=== PATIENT | female | born 1960 | race Caucasian/White ===

== ENCOUNTER 2016-12-22 05:32 | Day surgery (SDC) | payer OTHER ==
[2016-12-17 14:03] LABS: HEMATOCRIT 37.9 % (36.0-48.0); HEMOGLOBIN 11.6 g/dL (12.0-16.0)
[2016-12-17 14:13] LABS: BUN (BLOOD UREA NITROGEN) 13 MG/DL (6-23); CALCIUM, SERUM 9.5 MG/DL (8.5-10.4); CHLORIDE, SERUM 99 MMOL/L (96-112); GFR AFRICAN AMERICAN 114 ML/MIN (>=60); GFR NON AFRICAN AMERICAN 98 ML/MIN (>=60); POTASSIUM, SERUM 4.3 MMOL/L (3.5-5.3); SODIUM, SERUM 138 MMOL/L (135-148)
[2016-12-17 14:16] LABS: CO2 (CARBON DIOXIDE) 28 MMOL/L (24-34); GLUCOSE, SERUM 113 MG/DL (60-99)
--- NOTE | ~2016-12-22 | OP ---
Record Of Operation [facility] [address] [place]. [address] NAME: DIANE WOOD : 64 STATUS : REG [facility] PAT#: [id number] AGE: 56 ADM/REG DATE : 12/22/16 MR#: [id number] REPORT SERV DATE: 12/22/16 DICTATED BY: CAITLYN BUCK DATE: 12/22/16 REPORT STATUS : Draft TRANSCRIBED BY: MODFelix DATE: 12/22/16 DATE OF PROCEDURE: 12/22/2016 PREOPERATIVE DIAGNOSES: 1. 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 2. Congestive heart failure. 3. Insulin-dependent diabetes mellitus. 4. Hypertension. PROCEDURE PERFORMED: Closure of sternal wound with bilateral pectoralis advancement flaps. SURGEON: Caitlyn Buck M.D. ASSISTANTS: Darrin Madrid and Yoel Maldonado. ANESTHESIA: General. INDICATIONS: This is a 56-year-old female with a history of congestive heart failure, diabetes, who underwent uncomplicated bypass surgery in October of this year. She subsequently developed right lower extremity EVH site cellulitis. She was initially treated with antibiotic therapy orally. She presented with sternal wound drainage and was hospitalized, underwent debridement and sternal wound closure at the beginning of November and then re-presented to our office with sternal wound breakdown. She then underwent placement of a Vac-Pac and has had this changed multiple times, both home health, nursing, and here in the hospital. Last time we saw her in the office, it was felt that she is ready for closure at this time. We discussed this operation with the patient and her . They wished to proceed. FINDINGS OF OPERATION: 1. The patient has poor tissue and not very good muscular tissue and the bilateral pectoralis advancement flaps were felt to be indicated. 2. Thom drains were placed under each advancement flap. DESCRIPTION OF PROCEDURE: The patient was brought to the operating suite where general anesthesia was induced, airway was secured with the LMA. Lines were secured by Anesthesia. The patient laid in a supine position and the Vac-Pac was removed. The patient's chest and abdomen were prepped with Hibiclens and ChloraPrep, and draped with Ioban and sterile sheets. The wound was explored. There was no evidence of purulence. The granulation tissue appeared on the edges of the wound and was bleeding nicely. We then performed bilateral pectoralis advancement flaps, elevated the pectoralis off the chest wall bilaterally to allow tensionless closure of the midline. Then, the hemostasis was obtained. The large ladder plate placed previously was removed along with one sternal wire today. Then 3 L of Ancef irrigation with pulse lavage was performed in the wound. Record Of Operation [facility] [address] [place]. [address] NAME: DIANE WOOD : 64 STATUS : REG [facility] PAT#: [id number] AGE: 56 ADM/REG DATE : 12/22/16 MR#: [id number] REPORT SERV DATE: 12/22/16 DICTATED BY: CAITLYN BUCK DATE: 12/22/16 REPORT STATUS : Draft TRANSCRIBED BY: CRISTINA DATE: 12/22/16 Once hemostasis was assured, the pectoralis advancement flaps were reapproximated at the midline using #1 STRATAFIX. The subcutaneous tissue was not brought together; however, the skin was closed with interrupted sutures. Deep nylon sutures were placed to reinforce the closure. Prevena dressing was applied. The patient tolerated the procedure well. There were no complications. Sponge needle counts were correct. DISPOSITION: She was extubated and taken to the recovery room in stable condition. EDWAR/CRISTINA Caitlyn Buck M.D. / [id number] CC: Kemi Quinn
[~2016-12-22 05:32] MED LIST: AMARYL4 PO; ATEN50 PO; BACDS PO; CENTRUM TAB1 TAB PO; CINNAMON PO; CINNAMONPO PO; COREG3 PO; FISH-EPA1000 MG PO; GLUCOPHAGE1000 MG PO; HALF81 PO; JARDI25B PO; L20 PO; LEVAQUIN750 MG PO; LEVEMIR SC; LIPITOR40 PO; MIRALAX POWDER1 PKT PO; NITROQUICK0.4 MG SL; NITROSTAT0.4 MG SL; NORCO1 TA1 PO; NORCO1 TA2 PO; NORCO1 TAB PO; NORV5 PO; NOVOLOG SC; NOVOPEN SC; OTC ACID REDUCER PO; PLAVIX PO; PRIN2.5 PO; PRIN20 PO; PRINZIDE1 TA1 PO; PROZAC PO; STOOL SOFTEN100 MG PO; STOOL SOFTEN240 MG PO; TOUJEO SC; ZOCOR40 PO
== END 2016-12-22 19:19 | disposition home or self-care (01) ==
LOC: SDC 05:32
PROVIDERS: Thoracic Surgery (Cardiothoracic Vascular Surgery)
PROC: 0HX5XZZ Transfer Chest Skin, External Approach (ICD-10-PCS; principal; 2016-12-22 09:15)
DX: T81.30XS Disruption of wound, unspecified, sequela (principal); T81.4XXD Infection following a procedure, subsequent encounter; I25.10 Atherosclerotic heart disease of native coronary artery without angina pectoris; I11.0 Hypertensive heart disease with heart failure; I50.9 Heart failure, unspecified; I73.9 Peripheral vascular disease, unspecified; E78.5 Hyperlipidemia, unspecified; E11.9 Type 2 diabetes mellitus without complications; F41.9 Anxiety disorder, unspecified; I25.2 Old myocardial infarction; E78.00 Pure hypercholesterolemia, unspecified; F32.9 Major depressive disorder, single episode, unspecified; Z87.891 Personal history of nicotine dependence; Z95.1 Presence of aortocoronary bypass graft; Z88.1 Allergy status to other antibiotic agents; Z79.82 Long term (current) use of aspirin; Z79.891 Long term (current) use of opiate analgesic; Z79.899 Other long term (current) drug therapy; Z90.49 Acquired absence of other specified parts of digestive tract; Z98.890 Other specified postprocedural states
CPT/HCPCS: 80048; 82962; 85014; 85018; 93005; A9270-GY; J0690; J2250; J2270; J2405; J2795; J3010

== ENCOUNTER 2017-01-07 05:58 | Inpatient (IN) | payer OTHER ==
[2017-01-06 13:55] LABS: WBC (NOT ORDERED) (RFLEX) 0 (0-5)
[2017-01-06 15:14] LABS: BASOPHILS 0.2 %; BASOPHILS ABSOLUTE 0.02 10/3/uL (0.0-0.16); EOSINOPHILS 5.2 %; HEMATOCRIT 35.9 % (36.0-48.0); HEMOGLOBIN 11.2 g/dL (12.0-16.0); IMMATURE GRANULOCYTES 0.3 %; IMMATURE GRANULOCYTES ABSOLUTE 0.03 10/3/uL (0.0-0.11); LYMPHOCYTES 29.6 %; LYMPHOCYTES ABSOLUTE 3.39 10/3/uL (0.67-4.30); MANUAL DIFF NO %; MEAN CORPUS HGB CONC 31.2 g/dL (32.0-36.0); MEAN CORPUSCULAR HEMOGLOB 26.4 pg (26.0-34.0); MEAN CORPUSCULAR VOLUME 84.7 fL (80-100); MEAN PLATELET VOLUME 8.8 fL (9.2-13.0); MONOCYTES 4.5 %; MONOCYTES ABSOLUTE 0.51 10/3/uL (0.21-1.20); NEUTROPHILS 60.2 %; PLATELET COUNT 275 10/3/uL (150-400); RBC DISTRIBUTION WIDTH 14.7 % (12.0-16.0); RED CELL COUNT 4.24 10/6/uL (4.0-5.6); WHITE BLOOD CELLS 11.5 10/3/uL (4.5-10.5)
[2017-01-06 15:20] LABS: PROTIME (NOT ORD) 13.5 SEC (12.0-14.5)
[2017-01-06 15:23] LABS: BUN (BLOOD UREA NITROGEN) 13 MG/DL (6-23); CALCIUM, SERUM 8.9 MG/DL (8.5-10.4); CHLORIDE, SERUM 99 MMOL/L (96-112); CO2 (CARBON DIOXIDE) 25 MMOL/L (24-34); CREATININE 0.64 MG/DL (0.55-1.02); GFR AFRICAN AMERICAN 117 ML/MIN (>=60); GFR NON AFRICAN AMERICAN 101 ML/MIN (>=60); POTASSIUM, SERUM 4.4 MMOL/L (3.5-5.3); SODIUM, SERUM 136 MMOL/L (135-148)
[2017-01-06 15:24] LABS: GLUCOSE, SERUM 182 MG/DL (60-99)
[2017-01-06 16:37] LABS: ASCORBIC ACID (UR NOT ORDER) NEG (NEG); BILIRUBIN, URINE NEGATIVE (NEG); KETONE, URINE NEGATIVE (NEG); LEUKOCYTE ESTERASE(NOT OR NEG (NEG)
--- NOTE | ~2017-01-07 | OP ---
Record Of [facility] [address] [place]. [address] NAME: DIANE WOOD : 64 STATUS : ADM IN PAT#: [id number] AGE: 56 ADM/REG DATE : 01/07/17 MR#: [id number] REPORT SERV DATE: 01/10/17 DICTATED BY: CAITLYN BUCK DATE: 01/10/17 REPORT STATUS : Draft TRANSCRIBED BY: MODL DATE: 01/10/17 DATE OF PROCEDURE: 01/07/2017 PREOPERATIVE DIAGNOSES: 1. Sternal wound separation, status post coronary artery bypass grafting and previous closure. 2. Diabetes mellitus. 3. Tobacco abuse. POSTOPERATIVE DIAGNOSES: 1. Sternal wound separation, status post coronary artery bypass grafting and previous closure. 2. Diabetes mellitus. 3. Tobacco abuse. PROCEDURE PERFORMED: 1. Sternal wound debridement, superficial. 2. Placement of VAC pack. SURGEON: Caitlyn Buck M.D. ASPHALT LAYER: Yoel Maldonado. ANESTHESIA: General. INDICATIONS: Ms. Wood is an unfortunate 56-year-old female, who had bypass surgery by me in October of this year. She developed an endoscopic vein harvest site infection and then was treated with Duricef for this. She subsequently developed drainage from her sternal wound and broke down her sternal wound. She was treated with debridement and VAC pack for several weeks and then this was attempted to be closed secondarily. Unfortunately, this failed and the patient re-presented with drainage from the lower portion of her sternal incision which has been difficult to get to heal. I felt that the patient should re-appear in the operating room for debridement and this was discussed with the patient and her and wished to proceed. FINDINGS AT OPERATION: There was no active purulence deep within the wound. There was some granulation tissue and necrotic fat tissue that was seen and this was necrotic tissue frankly. Necrotic tissue was debrided. Cultures of the wound were sent. Once this was completed, hemostasis was obtained and then the wound was irrigated copiously with pulse lavage saline. The patient tolerated the procedure well. VAC pack was then placed at the end of the procedure. There was a small opening at the superior aspect of the sternal incision. It did not heal. This was clean without evidence of purulence and this was likewise debrided, irrigated and then a small VAC dressing placed on this. Record Of [facility] [address] [place] [address] NAME: DIANE WOOD : 64 STATUS : ADM IN PAT#: [id number] AGE: 56 ADM/REG DATE : 01/07/17 MR#: [id number] REPORT SERV DATE: 01/10/17 DICTATED BY: CAITLYN BUCK DATE: 01/10/17 REPORT STATUS : Draft TRANSCRIBED BY: CRISTINA DATE: 01/10/17 The patient tolerated the procedure well. VAC pack was applied without difficulty. DISPOSITION: She awakened and taken to recovery room in stable condition. EDWAR/CRISTINA Caitlyn Buck M.D. / [id number] CC: Kemi Quinn Paul E
--- NOTE | ~2017-01-07 | DS ---
Discharge Summary [facility] [address] [place]. [address] NAME: DIANE WOOD : 64 STATUS : DIS IN PAT#: [id number] AGE: 56 ADM/REG DATE : 01/07/17 MR#: [id number] REPORT SERV DATE: 01/20/17 DICTATED BY: CAITLYN BUCK DATE: 01/19/17 REPORT STATUS : Draft TRANSCRIBED BY: CRISTINA DATE: 01/19/17 Data Collection from hospitalization DISCHARGE DIAGNOSES: 1. Sternal wound separation, status post coronary artery bypass grafting and previous closure. 2. Diabetes mellitus. 3. Tobacco abuse. 4. Hypertension. 5. Hyperlipidemia. 6. Ischemic cardiomyopathy. 7. Chronic systolic heart failure. 8. Peripheral vascular disease. CONSULTATIONS: None. PROCEDURES PERFORMED: 1. Sternal wound debridement, superficial, placement of Vac-Pac on 01/07/2017. 2. Superficial sternal wound debridement with replacement of Vac-Pac, secondary closure of sternal separation on 01/10/2017. MEDICATIONS: Aspirin 81 mg daily, Lipitor 40 mg at bedtime, Coreg 3.125 mg twice a day, Duricef 500 mg every 12 hours, cinnamon oral supplement 500 mg daily, Plavix 75 mg every evening, stool softener 240 mg daily, Jardiance 25 mg daily, Prozac 20 mg every morning, Lasix 20 mg daily, [place]view 10/325 half to one tablet every four hours as needed, Toujeo 66 units subcutaneously every morning, Prinivil 2.5 mg every morning, Glucophage 1000 mg twice a day, NitroQuick 0.4 mg sublingually as needed, fish oil 1000 mg daily, MiraLAX powder one packet daily as needed, and cunr-wsa-wjsoslg acid plodding operator one tablet daily as needed. CONDITION AT DISCHARGE: Stable. DISPOSITION: The patient was discharged home on a low-cholesterol, low-sodium, 1800-calorie diabetic diet with activities as instructed. She would follow up with John Verduzco on 01/13/2017. HOSPITAL COURSE: This is a 56-year-old female who had undergone bypass surgery in October of this year. She developed an endoscopic vein harvest site infection and was then treated with Duricef. She subsequently developed drainage from the sternal wound and broke down her sternal wound. She had been treated with debridement and Vac-Pac for several weeks and then this was attempted to be closed secondarily. Unfortunately, this failed and the patient re- presented with drainage from the lower portion of the sternal incision, which had been difficult to heal. It was felt that she would need to be taken back to the operating room for debridement. This was discussed with the patient and her , and they agreed to proceed. She was admitted to the hospital at this time for further evaluation and treatment. Upon admission, she was taken to the operating room where she underwent the above-mentioned procedure. She tolerated this well, and there were no complications. The following day, Discharge Summary [facility] [address] [place]. [address] NAME: DIANE WOOD : 64 STATUS : DIS IN PAT#: [id number] AGE: 56 ADM/REG DATE : 01/07/17 MR#: [id number] REPORT SERV DATE: 01/20/17 DICTATED BY: CAITLYN BUCK DATE: 01/19/17 REPORT STATUS : Draft TRANSCRIBED BY: CRISTINA DATE: 01/19/17 she was alert and cooperative. White count was 11.5. On postop day #2, she had no new complaints. Plans were being made to take the patient back to the operating room. On 01/10/2017, she was taken back to the operating room where she underwent the above-mentioned procedure. She tolerated this well, and there were no complications. Discharge instructions were given. Due to her improved and stable condition, she was discharged home to be followed by home health care with the above-stated instructions. Information collected by: Ana Maria Valdivia I submit the above information as my discharge summary. DOLORES/CRISTINA Caitlyn Buck M.D. / [id number] CC: Kemi Quinn PAUL E
--- NOTE | ~2017-01-07 | OP ---
Record Of Operation [facility] [address] [place]. [address] NAME: DIANE WOOD : 64 STATUS : ADM IN [facility]#: [id number] AGE: 56 ADM/REG DATE : 01/07/17 MR#: [id number] REPORT SERV DATE: 01/10/17 DICTATED BY: CAITLYN BUCK DATE: 01/10/17 REPORT STATUS : Draft TRANSCRIBED BY: MODL DATE: 01/10/17 DATE OF PROCEDURE: 01/07/2017 PROCEDURE: 1. Superficial sternal wound debridement with replacement of VAC pack. 2. Secondary closure of sternal separation. SURGEON: Caitlyn Buck M.D. PLATE DRILLER: Darrin Madrid. ANESTHESIA: General. INDICATIONS: Ms Wood is a 56-year-old female, who presented with sternal wound separation after secondary closure following her bypass surgery in October of this year. A VAC pack dressing was applied over the weekend and felt the patient should go back to the operating room for inspection and debridement. I discussed with the patient and her who wished to proceed. FINDINGS AT OPERATION: 1. The most superior aspect of the wound was very clean and this was debrided lightly and then irrigated and then closed with interrupted nylon sutures. 2. The lower portion of the incision, it , measured about 8 cm long and about 3 cm deep. It was down to the clavipectoral fascia, but not down to the sternal bone. Unfortunately, there was necrotic tissue more on the left than the right and this would be expected given the patient's history of mammary harvest. No purulence was seen. No cultures were sent today. DESCRIPTION OF PROCEDURE: The patient was brought to the operating suite. General anesthesia was induced. The airway was secured with an endotracheal tube. Lines were secured by Anesthesia. VAC pack dressing was removed. The patient's chest was prepped with Hibiclens and ChloraPrep and draped with Ioban sterile sheets. Ioban was removed over the lower portion of the station and opening at the apex of the incision. The lower portion of the incision measured approximately 8 cm x 3 cm deep and it is granulating very well. There was no evidence of purulence. There was some necrotic tissue that was debrided. The superior aspect of the sternal wound separation measured approximately 1-2 cm and was less than 1 cm deep and was granulating very well. We then lightly debrided both areas of the wound and then irrigated these areas copiously with 3 L of sterile saline and Ancef irrigation and a pulse lavage. Once this was completed, the superior aspect of the wound was brought together with interrupted sutures of nylon. The lower aspect of the wound was dressed. VAC dressing was fashioned and placed in the wound. The superior aspect and inferior margins of the sternal separation were reinforced Record Of Operation [address] [address] NAME: DIANE WOOD : 64 STATUS : ADM IN [facility]#: [id number] AGE: 56 ADM/REG DATE : 01/07/17 MR#: [id number] REPORT SERV DATE: 01/10/17 DICTATED BY: CAITLYN BUCK DATE: 01/10/17 REPORT STATUS : Draft TRANSCRIBED BY: CRISTINA DATE: 01/10/17 or supported with horizontal mattress sutures of nylon to keep the wound from further. There was no tunneling evident. The VAC was applied. The patient tolerated the procedure well. There were no complications. Sponge and needle counts were correct. DISPOSITION: She was extubated and taken to recovery room in stable condition. EDWAR/CRISTINA Caitlyn Buck M.D. / [id number] CC: Kemi Quinn PAUL E
[2017-01-08 05:46] LABS: BUN (BLOOD UREA NITROGEN) 16 MG/DL (6-23); CALCIUM, SERUM 9.3 MG/DL (8.5-10.4); CHLORIDE, SERUM 98 MMOL/L (96-112); CO2 (CARBON DIOXIDE) 27 MMOL/L (24-34); CREATININE 0.87 MG/DL (0.55-1.02); GFR AFRICAN AMERICAN 88 ML/MIN (>=60); GFR NON AFRICAN AMERICAN 76 ML/MIN (>=60); POTASSIUM, SERUM 4.8 MMOL/L (3.5-5.3); SODIUM, SERUM 138 MMOL/L (135-148)
[2017-01-08 06:03] LABS: GLUCOSE, SERUM 277 MG/DL (60-99)
[2017-01-10 06:29] LABS: BASOPHILS 0.3 %; BASOPHILS ABSOLUTE 0.03 10/3/uL (0.0-0.16); EOSINOPHILS 3.9 %; HEMATOCRIT 37.4 % (36.0-48.0); HEMOGLOBIN 11.9 g/dL (12.0-16.0); IMMATURE GRANULOCYTES 0.2 %; IMMATURE GRANULOCYTES ABSOLUTE 0.02 10/3/uL (0.0-0.11); LYMPHOCYTES 40.3 %; LYMPHOCYTES ABSOLUTE 4.13 10/3/uL (0.67-4.30); MEAN CORPUS HGB CONC 31.8 g/dL (32.0-36.0); MEAN CORPUSCULAR HEMOGLOB 26.2 pg (26.0-34.0); MEAN CORPUSCULAR VOLUME 82.2 fL (80-100); MEAN PLATELET VOLUME 8.5 fL (9.2-13.0); MONOCYTES 7.2 %; MONOCYTES ABSOLUTE 0.74 10/3/uL (0.21-1.20); NEUTROPHILS 48.1 %; NEUTROPHILS ABSOLUTE 4.92 10/3/uL (2.02-8.40); PLATELET COUNT 307 10/3/uL (150-400); RBC DISTRIBUTION WIDTH 15.2 % (12.0-16.0); RED CELL COUNT 4.55 10/6/uL (4.0-5.6); WHITE BLOOD CELLS 10.2 10/3/uL (4.5-10.5)
[2017-01-10 06:38] LABS: CALCIUM, SERUM 9.2 MG/DL (8.5-10.4); CHLORIDE, SERUM 101 MMOL/L (96-112); CO2 (CARBON DIOXIDE) 24 MMOL/L (24-34); CREATININE 0.68 MG/DL (0.55-1.02); GFR AFRICAN AMERICAN 115 ML/MIN (>=60); GFR NON AFRICAN AMERICAN 99 ML/MIN (>=60); MANUAL DIFF NO %; POTASSIUM, SERUM 4.3 MMOL/L (3.5-5.3); SODIUM, SERUM 136 MMOL/L (135-148)
[2017-01-10 06:41] LABS: BUN (BLOOD UREA NITROGEN) 20 MG/DL (6-23); GLUCOSE, SERUM 188 MG/DL (60-99)
[2017-01-10] MEDS ORDERED: DURICEF PO (16:53)
== END 2017-01-10 17:50 | disposition home health service (06) | DRG 902 ==
LOC: SDC/OF 05:58 → PACU 09:15 → 5NO 10:15
PROVIDERS: Thoracic Surgery (Cardiothoracic Vascular Surgery)
PROC: 2W04X6Z Change Pressure Dressing on Chest Wall (ICD-10-PCS; 2017-01-07)
PROC: 0JB60ZZ Excision of Chest Subcutaneous Tissue and Fascia, Open Approach (ICD-10-PCS; principal; 2017-01-07 07:45)
PROC: 0PQ00ZZ Repair Sternum, Open Approach (ICD-10-PCS; 2017-01-07 07:45)
DX: T81.31XS Disruption of external operation (surgical) wound, not elsewhere classified, sequela (principal); I50.22 Chronic systolic (congestive) heart failure; I11.0 Hypertensive heart disease with heart failure; E11.9 Type 2 diabetes mellitus without complications; F17.210 Nicotine dependence, cigarettes, uncomplicated; Z95.1 Presence of aortocoronary bypass graft; I25.10 Atherosclerotic heart disease of native coronary artery without angina pectoris; E78.5 Hyperlipidemia, unspecified
CPT/HCPCS: 36415; 71020; 80048; 81001; 82962; 85025; 85610; 86850; 86900; 86901; 86920; 87015; 87070; 87075; 87102; 87116; 87205; A9270-GY; J0690; J1170; J2250; J2270; J2405; J2795; J3010; J3370

== ENCOUNTER 2017-01-19 16:35 | Emergency (ER) | payer OTHER ==
[2017-01-19 12:26] LABS: BASOPHILS 0.1 %; BASOPHILS ABSOLUTE 0.01 10/3/uL (0.0-0.16); EOSINOPHILS 3.6 %; EOSINOPHILS ABSOLUTE 0.34 10/3/uL (0.0-0.53); ER CBC TAT 0 Hrs 05 Mins; HEMATOCRIT 32.4 % (36.0-48.0); HEMOGLOBIN 10.2 g/dL (12.0-16.0); IMMATURE GRANULOCYTES 0.2 %; IMMATURE GRANULOCYTES ABSOLUTE 0.02 10/3/uL (0.0-0.11); LYMPHOCYTES 31.5 %; LYMPHOCYTES ABSOLUTE 2.94 10/3/uL (0.67-4.30); MANUAL DIFF NO %; MEAN CORPUS HGB CONC 31.5 g/dL (32.0-36.0); MEAN CORPUSCULAR HEMOGLOB 26.1 pg (26.0-34.0); MEAN CORPUSCULAR VOLUME 82.9 fL (80-100); MEAN PLATELET VOLUME 8.5 fL (9.2-13.0); MONOCYTES 6.8 %; MONOCYTES ABSOLUTE 0.63 10/3/uL (0.21-1.20); NEUTROPHILS 57.8 %; NEUTROPHILS ABSOLUTE 5.39 10/3/uL (2.02-8.40); PLATELET COUNT 223 10/3/uL (150-400); RBC DISTRIBUTION WIDTH 15.6 % (12.0-16.0); RED CELL COUNT 3.91 10/6/uL (4.0-5.6); WHITE BLOOD CELLS 9.3 10/3/uL (4.5-10.5)
[2017-01-19 12:36] LABS: INTERNATIONAL NORMAL RATI 1.1 UNITS (-); PARTIAL THROMBO TIME 29.4 SEC (22.5-37.2); PROTIME (NOT ORD) 14.1 SEC (12.0-14.5)
[2017-01-19 12:42] LABS: CALCIUM, SERUM 8.9 MG/DL (8.5-10.4); CHEST PAIN PROFILE TAT 0 Hrs 21 Mins; CHLORIDE, SERUM 105 MMOL/L (96-112); CO2 (CARBON DIOXIDE) 21 MMOL/L (24-34); CREATININE 0.63 MG/DL (0.55-1.02); GFR AFRICAN AMERICAN 118 ML/MIN (>=60); GFR NON AFRICAN AMERICAN 102 ML/MIN (>=60); GLUCOSE, SERUM 153 MG/DL (60-99); POTASSIUM, SERUM 3.9 MMOL/L (3.5-5.3); SODIUM, SERUM 140 MMOL/L (135-148); TROPONIN I <0.02 NG/ML (<0.05)
[2017-01-19 12:43] LABS: BUN (BLOOD UREA NITROGEN) 6 MG/DL (6-23)
[~2017-01-19 16:35] MED LIST changes: +DURICEF PO
== END 2017-01-19 18:56 | disposition home or self-care (01) ==
LOC: ER 16:35
PROVIDERS: Emergency Medicine
DX: R07.9 Chest pain, unspecified (principal); Z95.1 Presence of aortocoronary bypass graft; E11.9 Type 2 diabetes mellitus without complications; Z79.82 Long term (current) use of aspirin; Z79.899 Other long term (current) drug therapy
CPT/HCPCS: 71020; 71275; 80048; 83735; 84484; 85025; 85610; 85730; 93005; 96374; 96375; 99285; A9270-GY; J1170; J2405; Q9967

== ENCOUNTER 2017-03-23 06:02 | Day surgery (SDC) | payer OTHER ==
[2017-03-18 14:39] LABS: BASOPHILS 0.2 %; BASOPHILS ABSOLUTE 0.02 10/3/uL (0.0-0.16); EOSINOPHILS 3.3 %; EOSINOPHILS ABSOLUTE 0.29 10/3/uL (0.0-0.53); IMMATURE GRANULOCYTES 0.2 %; IMMATURE GRANULOCYTES ABSOLUTE 0.02 10/3/uL (0.0-0.11); LYMPHOCYTES 40.1 %; LYMPHOCYTES ABSOLUTE 3.51 10/3/uL (0.67-4.30); MEAN CORPUS HGB CONC 30.7 g/dL (32.0-36.0); MEAN CORPUSCULAR VOLUME 81.5 fL (80-100); MEAN PLATELET VOLUME 8.8 fL (9.2-13.0); MONOCYTES 8.5 %; MONOCYTES ABSOLUTE 0.74 10/3/uL (0.21-1.20); NEUTROPHILS 47.7 %; NEUTROPHILS ABSOLUTE 4.17 10/3/uL (2.02-8.40); PLATELET COUNT 207 10/3/uL (150-400); RBC DISTRIBUTION WIDTH 17.2 % (12.0-16.0); WHITE BLOOD CELLS 8.8 10/3/uL (4.5-10.5)
[2017-03-18 14:40] LABS: HEMATOCRIT 40.1 % (36.0-48.0); HEMOGLOBIN 12.3 g/dL (12.0-16.0); MANUAL DIFF NO %; RED CELL COUNT 4.92 10/6/uL (4.0-5.6)
[2017-03-18 14:45] LABS: INTERNATIONAL NORMAL RATI 1.1 UNITS (-)
[2017-03-18 14:51] LABS: CALCIUM, SERUM 9.3 MG/DL (8.5-10.4); CHLORIDE, SERUM 105 MMOL/L (96-112); CO2 (CARBON DIOXIDE) 25 MMOL/L (24-34); CREATININE 0.61 MG/DL (0.55-1.02); GFR AFRICAN AMERICAN 118 ML/MIN (>=60); GFR NON AFRICAN AMERICAN 102 ML/MIN (>=60); POTASSIUM, SERUM 4.2 MMOL/L (3.5-5.3); SODIUM, SERUM 139 MMOL/L (135-148)
[2017-03-18 14:52] LABS: BUN (BLOOD UREA NITROGEN) 11 MG/DL (6-23); GLUCOSE, SERUM 104 MG/DL (60-99)
[2017-03-18 15:37] LABS: ASCORBIC ACID (UR NOT ORDER) NEG (NEG); BILIRUBIN, URINE NEGATIVE (NEG); KETONE, URINE NEGATIVE (NEG); LEUKOCYTE ESTERASE(NOT OR NEG (NEG); WBC (NOT ORDERED) (RFLEX) < 1 (0-5)
--- NOTE | ~2017-03-23 | OP ---
Record Of Operation [facility] [address] [place]. [address] NAME: DIANE WOOD : 64 STATUS : REG [facility] PAT#: [id number] AGE: 57 ADM/REG DATE : 03/23/17 MR#: [id number] REPORT SERV DATE: 03/23/17 DICTATED BY: CAITLYN BUCK DATE: 03/23/17 REPORT STATUS : Draft TRANSCRIBED BY: MODFelix DATE: 03/23/17 DATE OF PROCEDURE: 03/23/2017 PREOPERATIVE DIAGNOSES: 1. 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 2. Type 2 non-insulin dependent diabetes mellitus. 3. Ischemic cardiomyopathy. 4. History of smoking. POSTOPERATIVE DIAGNOSES: 1. 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 2. Type 2 non-insulin dependent diabetes mellitus. 3. Ischemic cardiomyopathy. 4. History of smoking. PROCEDURE PERFORMED: 1. Debridement of wound with delayed primary closure. 2. Pulsed lavage irrigation of wound. SURGEON: Caitlyn Buck M.D. ANIMAL NUTRITION TEACHER: Darrin Madrid. ANESTHESIA: Local MAC sedation. INDICATIONS: Ms. Wood is a 57-year-old female, who had uncomplicated bypass surgery in 10/22/2016. Her preoperative ejection fraction was low at 35%. Postoperatively, it has improved significantly up to 50%. Unfortunately, she began breaking down the lower portion of her sternal incision without any evidence of infection. We tried multiple times to debride this area and bring it together, however, poor tissue perfusion was defeating us and would leave the patient with some residual room. We have a VAC in this area for several months for the last month or two and the wound is gradually closed down to about a nickel- sized area at the inferior or most caudal aspect of her incision. It does tunnel in the midline about 2 cm cranial but not laterally at all. The wound drainage is clear, and the patient is afebrile. We discussed possible options with the patient. She preferred another attempted delayed primary closure and this was discussed and proceeded with. FINDINGS: 1. There was no purulence. There was good granulation tissue around the tract of the wound. 2. The nickel-sized defect was debrided. We did undermine under the subcutaneous tissue on both sides slightly and then used nylon sutures to bring it all together. The wound was pulsed lavaged with 3 L of saline. PATHOLOGIC SPECIMENS: None. Record Of Operation [facility] [address] [place]. [address] NAME: DIANE WOOD : 64 STATUS : REG [facility] PAT#: [id number] AGE: 57 ADM/REG DATE : 03/23/17 MR#: [id number] REPORT SERV DATE: 03/23/17 DICTATED BY: CAITLYN BUCK DATE: 03/23/17 REPORT STATUS : Draft TRANSCRIBED BY: CRISTINA DATE: 03/23/17 DESCRIPTION OF PROCEDURE: The patient was brought to the operative suite where an LMA was inserted and the patient anesthetized this way. The patient's chest and abdomen were prepped with Hibiclens and ChloraPrep and draped with Ioban sterile sheets. The wound was exposed and digital examination demonstrated a small nickel-sized chronic opening in the skin and subcutaneous tissue over the most caudal aspect of her sternum. It tracked cranially for about 2 cm in the midline but not laterally. We then debrided this wound using curette and good bleeding was obtained. We then opened in the midline for the length of this 2 cm tunnel and then used interrupted nylon sutures to try to reapproximate this and eliminate this space within this tunnel. During the procedure, we used pulsed lavage irrigation with saline and Ancef solution for a total of 3 L. Following the placement of all the sutures, the wound did look good and a small Prevena VAC dressing was applied. The patient tolerated the procedure well. There were no complications. Sponge and needle counts were correct. DISPOSITION: She was extubated and taken to recovery room in stable condition. EDWAR/CRISTINA Caitlyn Buck M.D. / [id number] CC: Kemi Quinn PAUL E.
== END 2017-03-23 16:57 | disposition home or self-care (01) ==
LOC: SDC 06:02
PROVIDERS: Thoracic Surgery (Cardiothoracic Vascular Surgery)
PROC: 0JD60ZZ Extraction of Chest Subcutaneous Tissue and Fascia, Open Approach (ICD-10-PCS; principal; 2017-03-23 10:45)
DX: T81.4XXA Infection following a procedure, initial encounter (principal); I11.0 Hypertensive heart disease with heart failure; I50.22 Chronic systolic (congestive) heart failure; I25.10 Atherosclerotic heart disease of native coronary artery without angina pectoris; I73.9 Peripheral vascular disease, unspecified; I25.5 Ischemic cardiomyopathy; E11.42 Type 2 diabetes mellitus with diabetic polyneuropathy; E78.5 Hyperlipidemia, unspecified; Z48.01 Encounter for change or removal of surgical wound dressing; Z95.1 Presence of aortocoronary bypass graft; Z87.891 Personal history of nicotine dependence; Z79.82 Long term (current) use of aspirin; Z79.4 Long term (current) use of insulin; Z79.84 Long term (current) use of oral hypoglycemic drugs; Z79.899 Other long term (current) drug therapy
CPT/HCPCS: 36415; 80048; 81001; 82962; 85025; 85610; 86850; 86900; 86901; 86920; 93005; A9270-GY; J0690; J2250; J2270; J2370; J2405; J2795; J3010